=== PATIENT | female | born 1955 | race African-American/Black ===

== ENCOUNTER 2017-01-28 09:13 | Emergency (ER) | payer BC ==
[~2017-01-28] VITALS: Ht 157.5 cm; Wt 72.6 kg
--- NOTE | 2017-01-28 09:50 | Emergency Room Report ---
History of Present Illness General Chief Complaint: Lower Extremity Injury Source: Patient Present Illness HPI Patient presents with complaints of right knee pain Reports that 2 weeks which she had a fall onto the knee Was wearing a brace however while dancing she feels she might have pulled a ligamentum outside of the knee Presents reporting 10 over 10 pain at the knee worse with bearing weight Denies any fevers or chills She does not think any area is swollen Denies any calf pain or pelvic pain Allergies: Coded Allergies: No Known Allergies (Unverified , 01/28/17) Patient History Past Medical History: see triage record Pertinent Family History: none Reviewed Nursing Documentation: PMH: Agreed, PSxH: Agreed Nursing Documentation-PMH Past Medical History: No History, Except For Hx Diabetes: Yes Review of Systems All Other Systems: negative except mentioned in HPI Physical Exam Vital Signs Date Time Temp Pulse Resp B/P (MAP) Pulse Ox O2 Delivery O2 Flow Rate FiO2 01/28/17 09:21 98.1 80 20 123/83 98 Room Air Sp02 EP Interpretation: reviewed, normal General Appearance: well appearing Head: normocephalic, atraumatic Eyes: bilateral eye PERRL, bilateral eye EOMI ENT: hearing grossly normal, normal pharynx Neck: supple Musculoskeletal: other - No clinical signs of joint effusion on the right knee , patient is uncomfortable with any evaluation of the area, unable to perform appropriate knee evaluation, however the patient is ambulatory Neurologic: alert, oriented x3, responsive, brine well operator III-XII nml as tested Skin: normal color, no rash Lymphatic: no adenopathy Procedures Splinting Splinting : Consent: Verbal Location: right knee Pre-Made Type: knee immobilizer Pre-Proc Neuro Vasc Exam: normal Post-Proc Neuro Vasc Exam: normal Patient Tolerated: Well Complications: None Medical Decision Making Diagnostic Impression: Primary Impression: Knee sprain ER Course Given the history of a fall X-ray imaging was obtained I am a bit concerned that the patient did not levels any medical history information regarding chronic pain syndrome and pain management After asking regarding pain management The patient reports that she took her last pill yesterday and is out of medications patient reports taking and having pain management for low back arthritis Patient's knee x-ray does not show any obvious acute bony abnormality patient was placed into an immobilizer And requires close outpatient followup with possible MRI as needed Other X-Ray Diagnostic Results Other X-Ray Diagnostic Results : X-Ray ordered: right knee # of Views/Limited Vs Complete: 3 View Indication: Pain EP Interpretation: Yes Interpretation: no dislocation, no soft tissue swelling, no fractures Impression: No acute disease Electronically Signed by: Chiquita Caal DO Last Vital Signs Date Time Temp Pulse Resp B/P (MAP) Pulse Ox O2 Delivery O2 Flow Rate FiO2 01/28/17 09:21 98.1 80 20 123/83 98 Room Air Status: improved Disposition: HOME, SELF-CARE Condition: Improved Scripts Methocarbamol* (ROBAXIN-750*) 750 Mg Tablet 750 MG PO TID, #21 TAB 0 Refills Prov: CHIQUITA CAAL D.O. 01/28/17 Ibuprofen* (MOTRIN*) 600 Mg Tablet 600 MG ORAL Q8H Y for For Pain, #20 TAB 0 Refills Prov: CHIQUITA CAAL D.O. 01/28/17 Referrals: NON PHYSICIAN (PCP) Additional Instructions: Patient is provided with the discharge instructions notified to follow up with primary doctor in the next 2-3 days otherwise return to the er with any worsening symptoms. Please note that this report is being documented using [employer] technology. This can lead to erroneous entry secondary to incorrect interpretation by the dictating instrument. CHIQUITA CAAL D.O. Jan 28, 2017 09:50
[2017-01-28] MEDS ORDERED: Norco 10mg/325mg tab ORAL ONE (10:00)
[2017-01-28] MEDS ORDERED: Ketorolac 60mg Inj IM ONE (10:00)
[2017-01-28] MEDS ORDERED: ROBAXIN-750750 MG PO (10:26)
[2017-01-28] MEDS ORDERED: IBUPROFEN600 MG ORAL (10:26)
[2017-01-28 10:36] VITALS: BP 122/84
--- NOTE | 2017-01-28 11:24 | Diagnostic Imaging Report ---
Indication: Pain 3 views of the right knee were obtained. Findings: There is a probable joint effusion with opacification of suprapatellar pouch. There is narrowing and osteophyte formation involving the patellofemoral compartment. There is no fracture identified. No malalignment seen. Impression: No acute injury identified. Probable small joint effusion Osteoarthritis
== END 2017-01-28 10:40 | disposition home or self-care (01) ==
LOC: EMR 09:35
DX: S83.91XA Sprain of unspecified site of right knee, initial encounter (principal); W19.XXXA Unspecified fall, initial encounter; Z91.81 History of falling; Y93.9 Activity, unspecified; Y92.9 Unspecified place or not applicable; E11.9 Type 2 diabetes mellitus without complications; M17.11 Unilateral primary osteoarthritis, right knee
CPT/HCPCS: 96372; 99284